=== PATIENT | female | born 1950 ===

== ENCOUNTER 2019-08-31 07:22 | Outpatient (CLI) | payer OTHER | END 2019-08-31 07:29 | disposition home or self-care (01) | LOC: SONOGRAMA 07:22 | DX: E04.2 Nontoxic multinodular goiter (principal) ==

== ENCOUNTER 2021-12-28 05:54 | Emergency (ER) | payer OTHER ==
[~2021-12-28] VITALS: Ht 144.8 cm; Wt 73.9 kg
[2021-12-28] MEDS ORDERED: METFORMIN HCL500 MG (06:05)
== END 2021-12-28 12:09 | disposition home or self-care (01) ==
LOC: ER 05:54
DX: N13.2 Hydronephrosis with renal and ureteral calculous obstruction (principal); K57.30 Diverticulosis of large intestine without perforation or abscess without bleeding

== ENCOUNTER 2022-01-17 10:38 | Outpatient (CLI) | payer OTHER ==
[~2022-01-17 10:38] MED LIST: METFORMIN HCL500 MG
== END 2022-01-17 10:41 | disposition home or self-care (01) ==
LOC: SONOGRAMA 10:38
PROVIDERS: ATTEND Pathology Anatomic Pathology & Clinical Pathology
DX: E03.9 Hypothyroidism, unspecified (principal); E04.1 Nontoxic single thyroid nodule